=== PATIENT | female | born 1950 | race Caucasian/White ===

== ENCOUNTER 2016-11-10 21:46 | Inpatient (IN) | payer OTHER, MEDICARE ==
[~2016-11-10] VITALS: Ht 160 cm; Wt 46.0 kg
[2016-11-10 22:23] LABS: HEMATOCRIT 45.2 % (36.0-46.0); MCH 30.2 PG (29.0-34.0); MCHC 33.8 G/DL (30.0-36.0); MCV 89.2 FL (83-99); MEAN PLAT.VOLUME 9.4 uM^3 (9.5-12.4); PLATELET COUNT 140 K/uL (156-360); RBC DIS.WIDTH-CV 12.8 % (11.8-14.6); RBC DIS.WIDTH-SD 41.9 % (39-53); RED BLOOD COUNT 5.07 M/uL (3.80-5.20); WHITE BLOOD COUNT 11.6 K/uL (4.1-10.2)
[2016-11-10 22:33] LABS: CHLORIDE 101 mEq/L (99-109); POTASSIUM 3.4 mEq/L (3.7-5.4); SODIUM 137 mEq/L (136-147)
[2016-11-10 22:35] LABS: GLUCOSE 129 mg/dL (70-99)
[2016-11-10 22:36] LABS: ANION GAP 10 MEQ/L (2-14)
[2016-11-10 22:38] LABS: GFR ESTIMATE (CALCULATED) > 59 mL/min/
[2016-11-10 22:39] LABS: UREA NITROGEN (BUN) 14 mg/dL (9-23)
[2016-11-10 22:58] LABS: CARBON DIOXIDE (BICARBONATE) 30.3 MEQ/L (20-31)
[2016-11-10 23:09] LABS: TROP-I INTERPRETATION NEGATIVE; TROPONIN-I 0.09 ng/mL (0.0-0.30)
[2016-11-10 23:18] LABS: INTER. NORMALIZED RATIO 1.1; PROTHROMBIN TIME 11.9 SEC (10.2-12.9)
[2016-11-10 23:19] LABS: PTT 29.1 SEC (25-37)
[2016-11-10] MEDS ORDERED: BREO ELLIPTA 21 EACH IH (23:26)
[2016-11-10] MEDS ORDERED: OMEPRAZOLE40 M1 PO (23:27)
[2016-11-10] MEDS ORDERED: MONTELUKAST SOD10 MG PO (23:27)
[2016-11-10] MEDS ORDERED: CO Q-10100 MG PO (23:28)
[2016-11-10] MEDS ORDERED: LO-DOSE ASPIRIN81 M2 PO (23:29)
[2016-11-10] MEDS ORDERED: SUPER B COMPLE1 EAC2 PO (23:31)
[2016-11-10] MEDS ORDERED: DAILY MULTIPLE1 EACH PO (23:33)
[2016-11-10] MEDS ORDERED: LOVAZA1 GM PO (23:37)
[2016-11-10] MEDS ORDERED: FISH OIL 1,2001 EAC3 PO (23:38)
[2016-11-10] MEDS ORDERED: TYLENOL EXTRA500 MG PO (23:42)
[2016-11-10] MEDS ORDERED: ALEVE-D SINUS1 EACH PO (23:50)
[2016-11-11 02:06] VITALS: BP 98/38
[2016-11-11 06:03] LABS: HDL CHOLESTEROL 55 MG/DL (Desirable>=50); LDL CHOLESTEROL 116 mg/dL (Desirable<100); NON-HDL CHOLESTEROL 127 mg/dL (Desirable<160); TOTAL CHOLESTEROL 182 mg/dL (Desirable<200); TRIGLYCERIDES 57 MG/DL (Normal: <150)
[2016-11-11 06:04] LABS: TROP-I INTERPRETATION NEGATIVE; TROPONIN-I 0.19 ng/mL (0.0-0.30)
[2016-11-11 08:21] VITALS: BP 108/68
[2016-11-11 10:24] LABS: POINT-OF-CARE METER ID UU14162513
[2016-11-11 11:52] LABS: TROP-I INTERPRETATION NEGATIVE; TROPONIN-I 0.11 ng/mL (0.0-0.30)
[2016-11-11 12:33] VITALS: BP 95/51
[2016-11-11 16:00] VITALS: BP 89/63
[2016-11-11 17:56] LABS: POINT-OF-CARE METER ID UU14162513
[2016-11-11 19:36] VITALS: BP 102/62
[2016-11-11 22:09] LABS: POINT-OF-CARE METER ID UU14162513
[2016-11-12 00:08] VITALS: BP 98/57
[2016-11-12 03:20] VITALS: BP 134/92
[2016-11-12 07:50] VITALS: BP 132/78
[2016-11-12 08:43] LABS: POINT-OF-CARE METER ID UU14162513
[2016-11-12 09:22] LABS: HEMATOCRIT 47.8 % (36.0-46.0); MCH 29.4 PG (29.0-34.0); MCHC 33.3 G/DL (30.0-36.0); MCV 88.5 FL (83-99); MEAN PLAT.VOLUME 9.8 uM^3 (9.5-12.4); RBC DIS.WIDTH-CV 13.1 % (11.8-14.6); RBC DIS.WIDTH-SD 42.8 % (39-53); WHITE BLOOD COUNT 24.4 K/uL (4.1-10.2)
[2016-11-12 09:38] LABS: PLATELET COUNT 195 K/uL (156-360)
[2016-11-12 09:43] LABS: ANION GAP 8 MEQ/L (2-14); CHLORIDE 103 MEQ/L (99-109); SAMPLE HEMOLYSIS CHECK 0; SAMPLE ICTERIC CHECK 0; SAMPLE LIPEMIA CHECK 0; SODIUM 141 MEQ/L (136-147)
[2016-11-12 09:49] LABS: GFR ESTIMATE (CALCULATED) > 59 mL/min/; GLUCOSE 133 mg/dL (70-99); UREA NITROGEN (BUN) 16 mg/dL (9-23)
[2016-11-12 12:03] VITALS: BP 121/78
[2016-11-12 13:02] LABS: POINT-OF-CARE METER ID UU13113700
[2016-11-12 16:09] VITALS: BP 122/80
[2016-11-12 17:18] LABS: POINT-OF-CARE METER ID UU14162513
[2016-11-12 22:08] VITALS: BP 130/78
[2016-11-13] VITALS: BP 122/76
[2016-11-13 08:16] LABS: POINT-OF-CARE METER ID UU14162513
[2016-11-13 09:30] VITALS: BP 108/70
[2016-11-13 10:51] VITALS: BP 108/76
[2016-11-13 12:52] LABS: POINT-OF-CARE METER ID UU13113831
[2016-11-13 14:46] VITALS: BP 110/72
[2016-11-13 23:20] VITALS: BP 139/92
[2016-11-14 00:19] LABS: POINT-OF-CARE METER ID UU14162513
[2016-11-14 07:40] VITALS: BP 102/80
[2016-11-14 12:32] VITALS: BP 142/87
[2016-11-14 16:00] VITALS: BP 152/84
[2016-11-14 17:39] LABS: POINT-OF-CARE METER ID UU13113831
[2016-11-14 21:53] LABS: POINT-OF-CARE METER ID UU13113831
[2016-11-15 03:50] VITALS: BP 109/63
[2016-11-15 06:57] LABS: EOSINOPHIL (%) 0 % (0-5); HEMATOCRIT 47.7 % (36.0-46.0); IMMATURE GRANULOCYTE (%) 1.1 % (0.0-0.7); IMMATURE GRANULOCYTE COUNT 0.2 K/uL; INSTRUMENT ABS NEUTROPHIL CT 10.9 K/uL; LYMPHOCYTE COUNT 1.5 K/uL (1.0-2.8); MCH 29.4 PG (29.0-34.0); MCHC 32.7 G/DL (30.0-36.0); MCV 89.8 FL (83-99); MEAN PLAT.VOLUME 9.6 uM^3 (9.5-12.4); MONOCYTE (%) 7.3 % (3-12); NEUTROPHIL (%) 80.7 % (45-76); NEUTROPHIL COUNT 10.9 K/uL (1.8-6.4); PLATELET COUNT 237 K/uL (156-360); RBC DIS.WIDTH-CV 12.4 % (11.8-14.6); RBC DIS.WIDTH-SD 41.2 % (39-53); RED BLOOD COUNT 5.31 M/uL (3.80-5.20); WHITE BLOOD COUNT 13.5 K/uL (4.1-10.2)
[2016-11-15 07:20] VITALS: BP 162/93
[2016-11-15 07:21] LABS: ANION GAP 5 MEQ/L (2-14); CHLORIDE 93 MEQ/L (99-109); GFR ESTIMATE (CALCULATED) > 59 mL/min/; GLUCOSE 133 mg/dL (70-99); POTASSIUM 4.1 MEQ/L (3.7-5.4); SAMPLE HEMOLYSIS CHECK 0; SAMPLE ICTERIC CHECK 0; SAMPLE LIPEMIA CHECK 0; SODIUM 137 MEQ/L (136-147); UREA NITROGEN (BUN) 17 mg/dL (9-23)
[2016-11-15 07:28] LABS: POINT-OF-CARE METER ID UU14208750
[2016-11-15 11:31] VITALS: BP 99/79
[2016-11-15 11:44] LABS: POINT-OF-CARE METER ID UU14208750
[2016-11-15 15:04] VITALS: BP 161/84
[2016-11-15 19:44] VITALS: BP 158/80
[2016-11-16 00:38] VITALS: BP 101/56
[2016-11-16 03:57] VITALS: BP 144/78
[2016-11-16 07:08] LABS: BASOPHIL COUNT 0.1 K/uL (0-0.1); EOSINOPHIL (%) 0.6 % (0-5); EOSINOPHIL COUNT 0.1 K/uL (0-0.3); HEMATOCRIT 46.6 % (36.0-46.0); IMMATURE GRANULOCYTE (%) 2.8 % (0.0-0.7); IMMATURE GRANULOCYTE COUNT 0.3 K/uL; LYMPHOCYTE COUNT 2.3 K/uL (1.0-2.8); MCH 30.9 PG (29.0-34.0); MCHC 34.3 G/DL (30.0-36.0); MCV 90.1 FL (83-99); MEAN PLAT.VOLUME 9.4 uM^3 (9.5-12.4); MONOCYTE COUNT 1.1 K/uL (0-0.8); NEUTROPHIL (%) 64.8 % (45-76); PLATELET COUNT 233 K/uL (156-360); RBC DIS.WIDTH-CV 12.4 % (11.8-14.6); RBC DIS.WIDTH-SD 41.3 % (39-53); RED BLOOD COUNT 5.17 M/uL (3.80-5.20); WHITE BLOOD COUNT 10.8 K/uL (4.1-10.2)
[2016-11-16 07:36] LABS: ANION GAP 7 MEQ/L (2-14); CHLORIDE 94 MEQ/L (99-109); GFR ESTIMATE (CALCULATED) > 59 mL/min/; POTASSIUM 3.4 MEQ/L (3.7-5.4); SAMPLE HEMOLYSIS CHECK 0; SAMPLE ICTERIC CHECK 0; SAMPLE LIPEMIA CHECK 0; SODIUM 137 MEQ/L (136-147); UREA NITROGEN (BUN) 13 mg/dL (9-23)
[2016-11-16 07:39] LABS: GLUCOSE 93 mg/dL (70-99)
[2016-11-16 09:00] VITALS: BP 154/81
[2016-11-16 11:10] VITALS: BP 146/76
[2016-11-16 15:37] VITALS: BP 136/81
[2016-11-16] MEDS ORDERED: MYCOSTATIN 100,60 ML PO (16:41)
[2016-11-16] MEDS ORDERED: CEFTIN500 MG PO (16:41)
[2016-11-16] MEDS ORDERED: NICOTINE PATCH1 EAC1 TD (16:42)
[2016-11-16] MEDS ORDERED: BUPROPION HCL150 M2 PO (16:42)
[2016-11-16] MEDS ORDERED: SPIRIVA RESPIMAT4 GM IH (16:42)
[2016-11-16] MEDS ORDERED: PRAVASTATIN SOD80 MG PO (16:42)
[2016-11-16] MEDS ORDERED: BENZONATATE100 MG PO (16:43)
[2016-11-16] MEDS ORDERED: PREDNISONE20 MG PO (16:44)
[2016-11-16] MEDS ORDERED: DOCUSATE SODIU100 MG PO (16:44)
[2016-11-16] MEDS ORDERED: FLORASTOR250 MG PO (16:44)
[2016-11-16] MEDS ORDERED: PROAIR RESPICL90 MCG IH (16:46)
== END 2016-11-16 19:27 | disposition home health service (06) | DRG 189 ==
LOC: EME → EDBD 21:46 → EME 21:46 → EDOF 11-11 00:10 → ENRESERV 11-11 00:11 → 5WEST 11-11 01:50 → ENRESERV 11-12 10:22 → CANRESERV 11-12 10:22 → ENRESERV 11-14 17:02 → 2EAST 11-14 23:00
PROVIDERS: Emergency Medicine; Hospitalist; Internal Medicine; Physician Assistant Medical
DX: J96.21 Acute and chronic respiratory failure with hypoxia (principal); J44.0 Chronic obstructive pulmonary disease with (acute) lower respiratory infection; J20.9 Acute bronchitis, unspecified; E87.6 Hypokalemia; R73.9 Hyperglycemia, unspecified; E78.5 Hyperlipidemia, unspecified; K21.9 Gastro-esophageal reflux disease without esophagitis; Z99.81 Dependence on supplemental oxygen; F17.210 Nicotine dependence, cigarettes, uncomplicated; F32.9 Major depressive disorder, single episode, unspecified; F41.9 Anxiety disorder, unspecified; G47.8 Other sleep disorders; I73.9 Peripheral vascular disease, unspecified; I25.10 Atherosclerotic heart disease of native coronary artery without angina pectoris; J44.1 Chronic obstructive pulmonary disease with (acute) exacerbation; B37.0 Candidal stomatitis; K74.60 Unspecified cirrhosis of liver
CPT/HCPCS: 71020; 71275; 80048; 80061; 82803; 82948; 83880; 84484; 85025; 85027; 85379; 85610; 85730; 93005; 93306; 94640; 94640 76; 94799; 99202; G0378; J0696; J1644; J1815; J2920; J2930; J7030; J7050; J7512